=== PATIENT | female | born 1995 | race Hispanic/Latino ===

== ENCOUNTER 2018-07-15 08:29 | Emergency (ER) | payer BC | END 2018-07-15 09:24 | disposition home or self-care (01) | LOC: EDH 08:29 | DX: J45.21 Mild intermittent asthma with (acute) exacerbation (principal); Z79.899 Other long term (current) drug therapy; Z72.0 Tobacco use ==

== ENCOUNTER 2022-04-14 07:00 | Emergency (ER) | payer BC ==
[~2022-04-14] VITALS: Ht 162.6 cm; Wt 97.5 kg
[2022-04-14 07:37] LABS: BASOPHILS % (AUTO) 0.5 % (0.0-5.0); EOSINOPHILS % (AUTO) 5.3 % (0.0-8.0); HEMATOCRIT 39.8 % (36-48); LYMPHOCYTES % (AUTO) 19.1 % (21.0-51.0); MEAN CORPUSCULAR HEMOGLOBIN 29.2 pg (27.0-33.0); MEAN CORPUSCULAR HGB CONC 34.2 g/dL (32.0-36.0); MEAN CORPUSCULAR VOLUME 85.6 fL (79-99); MONOCYTES % (AUTO) 6.9 % (3.0-13.0); NEUTROPHILS % (AUTO) 67.7 % (40.0-77.0); PLATELET COUNT (AUTO) 353 K/uL (130-400); RED BLOOD CELL COUNT(AUTO) 4.65 MIL/uL (4.00-5.50); RED CELL DISTRIBUTION WIDTH 13.7 % (11.0-15.5); WHITE BLOOD COUNT (AUTO) 13.8 K/uL (4.8-10.8)
[2022-04-14 07:52] LABS: ALBUMIN 3.4 g/dL (3.5-5.0); CREATININE 0.7 mg/dL (0.5-1.5); POTASSIUM 4.1 mmol/L (3.5-5.1); TOTAL PROTEIN, SERUM 7.8 g/dL (6.0-8.3)
[2022-04-14] MEDS ORDERED: CLINDAMYCIN IVPB 600MG/50ML 50 ML IV STA (08:50)
[2022-04-14] MEDS ORDERED: CLIN-141 PO (08:54)
[2022-04-14 09:16] VITALS: BP 122/81
== END 2022-04-14 10:21 | disposition home or self-care (01) ==
LOC: EDH 07:00
DX: L02.213 Cutaneous abscess of chest wall (principal); J45.909 Unspecified asthma, uncomplicated
CPT/HCPCS: 99284; 96365; 80053; 85025; 36415; 76642; J3490

== ENCOUNTER 2024-05-15 07:49 | Emergency (ER) | payer SELFPAY ==
[~2024-05-15] VITALS: Ht 162.6 cm; Wt 103.0 kg
[~2024-05-15 07:49] MED LIST: CLIN-141 PO
[2024-05-15 08:39] LABS: BASOPHILS # (AUTO) 0.09 K/uL (0.00-0.20); BASOPHILS % (AUTO) 0.6 % (0.0-5.0); EOSINOPHILS # (AUTO) 0.42 K/uL (0.00-0.70); EOSINOPHILS % (AUTO) 2.7 % (0.0-8.0); HEMATOCRIT 41.6 % (36-48); IMMATURE GRANULOCYTE ABSOLUTE 0.06 K/uL (0-1); LYMPHOCYTES # (AUTO) 2.4 K/uL (1.0-4.8); LYMPHOCYTES % (AUTO) 15.1 % (21.0-51.0); MEAN CORPUSCULAR HEMOGLOBIN 29.7 pg (27.0-33.0); MEAN CORPUSCULAR HGB CONC 33.9 g/dL (32.0-36.0); MEAN CORPUSCULAR VOLUME 87.8 fL (79-99); MONOCYTES # (AUTO) 0.7 K/uL (0.1-1.0); MONOCYTES % (AUTO) 4.5 % (3.0-13.0); NEUTROPHILS # (AUTO) 12.1 K/uL (1.8-7.7); NEUTROPHILS % (AUTO) 76.7 % (40.0-77.0); PLATELET COUNT (AUTO) 361 K/uL (130-400); RED BLOOD CELL COUNT(AUTO) 4.74 MIL/uL (4.00-5.50); RED CELL DISTRIBUTION WIDTH 13.4 % (11.0-15.5); WHITE BLOOD COUNT (AUTO) 15.7 K/uL (4.8-10.8)
[2024-05-15 08:46] LABS: CREATININE 0.6 mg/dL (0.5-1.0); POTASSIUM 3.7 mmol/L (3.5-5.1)
[2024-05-15] MEDS: cefTRIAXone 1G VIAL IVPB ONE (08:59)
[2024-05-15] MEDS: KETOROLAC 15MG/ML VIAL (15MG/ML) IV ONE (08:59)
[2024-05-15] MEDS ORDERED: KETO10TA2 PO (09:17)
[2024-05-15] MEDS ORDERED: SULF1TAB42 PO (09:17)
[2024-05-15] MEDS ORDERED: KETO10 PO (09:17)
[2024-05-15 09:18] VITALS: BP 153/88; PULSE 87; RESP 18; O2SAT 98
[2024-05-16] MEDS ORDERED: ONDA22I IM (08:46)
[2024-05-16] MEDS ORDERED: CEPH500B PO (08:46)
[2024-05-16] MEDS ORDERED: ONDA-243 PO (09:08)
== END 2024-05-15 09:24 | disposition home or self-care (01) ==
LOC: EDH 07:49
DX: L73.9 Follicular disorder, unspecified (principal); R10.2 Pelvic and perineal pain; J45.909 Unspecified asthma, uncomplicated; Z79.899 Other long term (current) drug therapy; Z98.890 Other specified postprocedural states
CPT/HCPCS: 99284; 96374; 96375; 80048; 84702; 85025; 81025; 36415; J0696; J1885

== ENCOUNTER 2024-05-16 06:44 | Emergency (ER) | payer SELFPAY ==
[~2024-05-16] VITALS: Ht 162.6 cm; Wt 98.9 kg
[~2024-05-16 06:44] MED LIST changes: +KETO10 PO; +KETO10TA2 PO; +SULF1TAB42 PO
[2024-05-16] MEDS ORDERED: LIDOCAINE HCL 1% 20 ML VIAL INJ SCH (07:30)
[2024-05-16 08:04] LABS: BASOPHILS # (AUTO) 0.06 K/uL (0.00-0.20); BASOPHILS % (AUTO) 0.3 % (0.0-5.0); EOSINOPHILS # (AUTO) 0.32 K/uL (0.00-0.70); EOSINOPHILS % (AUTO) 1.8 % (0.0-8.0); IMMATURE GRANULOCYTE ABSOLUTE 0.08 K/uL (0-1); LYMPHOCYTES # (AUTO) 2.1 K/uL (1.0-4.8); LYMPHOCYTES % (AUTO) 12.3 % (21.0-51.0); MEAN CORPUSCULAR HEMOGLOBIN 29.2 pg (27.0-33.0); MEAN CORPUSCULAR HGB CONC 33.4 g/dL (32.0-36.0); MEAN CORPUSCULAR VOLUME 87.4 fL (79-99); MONOCYTES # (AUTO) 0.9 K/uL (0.1-1.0); MONOCYTES % (AUTO) 5.1 % (3.0-13.0); NEUTROPHILS # (AUTO) 13.9 K/uL (1.8-7.7); PLATELET COUNT (AUTO) 368 K/uL (130-400); RED BLOOD CELL COUNT(AUTO) 4.35 MIL/uL (4.00-5.50); RED CELL DISTRIBUTION WIDTH 13.6 % (11.0-15.5); WHITE BLOOD COUNT (AUTO) 17.3 K/uL (4.8-10.8)
[2024-05-16 08:16] LABS: ALBUMIN 3.5 g/dL (3.5-5.0); BILIRUBIN,TOTAL 0.8 mg/dL (0.2-1.0); CREATININE 0.6 mg/dL (0.5-1.0); POTASSIUM 3.7 mmol/L (3.5-5.1); TOTAL PROTEIN, SERUM 8.4 g/dL (6.0-8.3)
[2024-05-16] MEDS: ONDANSETRON 4MG INJ ONE (08:30)
[2024-05-16] MEDS: 0.9%NACL 1000ML 1,000 ML IV ONE (08:30)
[2024-05-16] MEDS: cefTRIAXone 1G VIAL IVPB ONE (08:30)
[2024-05-16] MEDS: MORPHINE 4 MG SYG ONE (08:31)
[2024-05-16] MEDS: ONDANSETRON 4MG INJ IVP ONE (08:31)
[2024-05-16] MEDS: MORPHINE 4 MG SYG IVP ONE (08:31)
[2024-05-16] MEDS ORDERED: CEPH500B PO (08:46)
[2024-05-16] MEDS ORDERED: ONDA22I IM (08:46)
[2024-05-16] MEDS ORDERED: teTANUS/diphthERIA TOXOID [ADULT] 0.5 ML VIAL IM ONE (09:00)
[2024-05-16] MEDS ORDERED: LIDOCAINE HCL 1% 20 ML VIAL INJ ONE (09:00)
[2024-05-16] MEDS ORDERED: ONDA-243 PO (09:08)
[2024-05-16] MEDS: VANCOMYCIN KIT 1 GM/250 ML IV.KIT IV ONE (09:29)
[2024-05-16] MEDS: DIPH,PERTUSS(ACELL),TET VAC/PF 0.5 ML VIAL IM ONE (09:30)
[2024-05-16 11:01] VITALS: BP 127/80; PULSE 99; RESP 14; O2SAT 98
== END 2024-05-16 11:01 | disposition home or self-care (01) ==
LOC: EDH 06:44
DX: L02.214 Cutaneous abscess of groin (principal); D72.829 Elevated white blood cell count, unspecified; J45.909 Unspecified asthma, uncomplicated; Z79.899 Other long term (current) drug therapy
CPT/HCPCS: 99284; 96365; 10060; 96375; 80053; 84703; 85025; 87040; 83605; 36415; 90715; 90471; J0696; J2405; J2270; J3370

== ENCOUNTER 2024-05-18 17:30 | Emergency (ER) | payer SELFPAY ==
[~2024-05-18] VITALS: Ht 162.6 cm; Wt 98.9 kg
[~2024-05-18 17:30] MED LIST changes: +CEPH500B PO; +ONDA-243 PO
[2024-05-18] MEDS: fluCONazole 100 MG TAB PO ONE (18:46)
[2024-05-18 18:58] VITALS: BP 137/89; PULSE 70; RESP 17; O2SAT 96
== END 2024-05-18 19:22 | disposition home or self-care (01) ==
LOC: EDH 17:30
DX: L02.214 Cutaneous abscess of groin (principal); J45.909 Unspecified asthma, uncomplicated; Z79.899 Other long term (current) drug therapy; Z98.890 Other specified postprocedural states